=== PATIENT | female | born 1950 | race Caucasian/White ===

== ENCOUNTER → 2019-01-24 | Outpatient (CLI) | payer MEDICARE ==
--- NOTE | 2019-01-24 14:20 | PCVCIMAG ---
APPROVED REPORT Study performed: 01/24/2019 11:06:00 EXAM: Comprehensive 2D, Doppler, and color-flow Echocardiogram Patient Location: Echo lab Room #: 3Status: routine BSA: 1.80 HR: 81 bpmBP: 148/82 mmHg Rhythm: NSR Other Information Study Quality: Adequate Indications Murmur Dyspnea LANG,dyspnea at elevation 2D Dimensions IVSd: 6.00 (7-11mm)LVOT Diam: 19.78 (18-24mm) LVDd: 49.31 mm PWd: 5.97 (7-11mm)Ascending Ao: 21.69 (22-36mm) LVDs: 21.35 (25-40mm) Left Atrium: 34.43 (27-40mm) Aortic Root: 21.38 mm LV Single Plane 4CH: 55.45 % LV Single Plane 2CH: 56.82 % Biplane EF: 58.0 % Volumes Left Atrial Volume (Systole) Single Plane 4CH: 77.42 mLSingle Plane 2CH: 61.29 mL Biplane LA Volume: 72.00 mLLA ESV Index: 40.00 mL/m2 Aortic Valve AoV Peak Jeff.: 2.52 m/s AO Peak Gr.: 27.27 mmHgLVOT Max P.38 mmHg AO Mean Gr.: 14.83 mmHgLVOT Mean P.16 mmHg AO V2 Mean: 1.84 m/sLVOT Max V: 1.15 m/s AO V2 VTI: 49.54 cmLVOT Mean V: 0.84 m/s DEVI (VTI): 1.52 [id number] V1 VTI: 24.53 cm DEVI Vmax: 1.41 cm2 SV (LVOT): 75.36 mL Mitral Valve E/A Ratio: 1.1 MV Decel. Time: 231.07 ms MV E Max Jeff.: 0.79 m/s MV A Jeff.: 0.73 m/s IVRT: 89.97 ms Pulmonary Valve PV Peak Jeff.: 1.06 m/sPV Peak Gr.: 4.47 mmHg Pulmonary Vein P Vein S: 0.57 m/sP Vein A: 0.32 m/s P Vein D: 0.68 m/sP Vein A Dur.: 69.2 msec P Vein S/D Ratio: 0.84 Tricuspid Valve TR Peak Jeff.: 2.67 m/s TR Peak Gr.: 28.51 mmHg TV Vmax: 0.62 m/sPA Pressure: 36.00 mmHg Left Ventricle The left ventricle is normal size. There is normal LV segmental wall motion. There is normal left ventricular wall thickness. Left ventricular systolic function is normal. The left ventricular ejection fraction is within the normal range. LVEF is 55-60%. Right Ventricle The right ventricle is normal size. The right ventricular systolic function is normal. Atria Left atrium is mildly dilated. The right atrium size is normal. Aortic Valve Aortic valve is trileaflet. No aortic regurgitation is present. There is mild valvular aortic stenosis. Maximum pressure gradient of 25.3 mmHg and mean pressure gradient of 14.8 mmHg. Mitral Valve The mitral valve is normal in structure. There is no mitral valve regurgitation noted. No evidence of mitral valve stenosis. Tricuspid Valve The tricuspid valve is normal in structure. There is mild tricuspid regurgitation. Right ventricular systolic pressure is estimated at 30-40 mmHg. There is mild pulmonary hypertension. Pulmonic Valve The pulmonary valve is normal in structure. There is no pulmonic valvular regurgitation. Great Vessels The aortic root is normal in size. IVC is normal in size and collapses >50% with inspiration. Pericardium There is no pericardial effusion. <Conclusion> The left ventricle is normal size. There is normal left ventricular wall thickness. Left ventricular systolic function is normal. The right ventricle is normal size. Left atrium is mildly dilated. There is mild valvular aortic stenosis. There is no mitral valve regurgitation noted. There is mild tricuspid regurgitation.
== END | disposition home or self-care (01) ==
LOC: PCVCIMAG 10:49
PROVIDERS: ATTEND Family Medicine
DX: I08.0 Rheumatic disorders of both mitral and aortic valves (principal); I27.20 Pulmonary hypertension, unspecified
CPT/HCPCS: 93306

== ENCOUNTER → 2019-02-21 | Outpatient (CLI) | payer MEDICARE | END | disposition home or self-care (01) | LOC: PCVCCLINIC 10:30 | PROVIDERS: ATTEND Internal Medicine | DX: I10 Essential (primary) hypertension (principal); R94.31 Abnormal electrocardiogram [ECG] [EKG]; I45.19 Other right bundle-branch block; R06.09 Other forms of dyspnea; E78.5 Hyperlipidemia, unspecified; E11.9 Type 2 diabetes mellitus without complications; Z90.09 Acquired absence of other part of head and neck; Z90.49 Acquired absence of other specified parts of digestive tract; Z96.653 Presence of artificial knee joint, bilateral; Z90.710 Acquired absence of both cervix and uterus; Z80.0 Family history of malignant neoplasm of digestive organs; Z82.3 Family history of stroke; Z82.49 Family history of ischemic heart disease and other diseases of the circulatory system; Z88.5 Allergy status to narcotic agent; Z79.899 Other long term (current) drug therapy | CPT/HCPCS: 36415; 80061; 93005; G0463 ==